=== PATIENT | male | born 1995 | race American Indian/Alaskan Native ===

== ENCOUNTER 2017-02-16 17:42 | Emergency (ER) | payer OTHER ==
[2017-02-16 17:53] VITALS: BP 131/70; PULSE 94; TEMP 99; BMI 25.8
--- NOTE | 2017-02-16 19:09 | PDOC ---
History of Present Illness - History of Present Illness Initial Comments: 02/16/17 20:42 The patient is a 21 year old with no PMHx who presents to the ED with non- radiating low back pain, neck pain, and headache for 2 days. He reports associated light sensitivity, generalized weakness, fever, and chills. Patient states that this pain is worse lying down at night and waking up in the morning. He took Advil with minimal relief. He reports he was chopping wood two days ago before the pain began. He denies cough, congestion, SOB. He denies ear pain, runny nose. He denies numbness, nausea, vomiting, diarrhea, constipation. He denies urinary complaints.He denies recent trauma, recent illness. PAST MEDICAL HISTORY: no significant history PAST SURGICAL HISTORY: no significant history FAMILY HISTORY: no pertinent history SOCIAL HISTORY: Pt lives with family and is employed. MEDICATIONS: reviewed ALLERGIES: As per nursing notes Review of Systems: General: (+) fever, chills, weakness,No weight loss HEENT: No change in vision. No sore throat,. No ear pain CardioVascular: No chest pain or shortness of breath Respiratory: No cough, or wheezing. Gastrointestinal: no nausea, vomiting, diarrhea or constipation, No rectal bleeding Genitourinary: No dysuria, hematuria, or frequency Musculoskeletal: (+) low back pain, neck pain. No joint pain or swelling Neurologic: (+) headache, light sensitivity. No vertigo, dizziness or loss of consciousness Psychiatric: No depression Skin: No rashes or easy bruising Endocrine: No increased thirst or abnormal weight change Allergic: No skin or latex allergy All other systems reviewed and normal BASIC EXAM: GENERAL: The patient is awake, alert, and fully oriented, in no acute distress. HEAD: Normal with no signs of trauma. EYES: Pupils equal, round and reactive to light, extraocular movements intact, sclera anicteric, conjunctiva clear. EXTREMITIES: Normal range of motion, no edema. NEUROLOGICAL: Normal speech, normal gait. PSYCH: Normal mood, normal affect. SKIN: Warm, Dry, normal turgor, no rashes or lesions noted. NECK: No cervical tenderness, no meningeal signs, posterior oropharynx has mild erythema with no exudates, no lymphadenopathy. Bilateral neck muscles are tender on palpation BACK: Paraspinal tenderness and spasms at the mid lumbar area. No tenderness over sciatic notch. Negative straight leg raising. Neurovascular distal intact. <Radha Anderson - Last Filed: 02/16/17 20:42> - General History Source: Patient Exam Limitations: No Limitations - History of Present Illness Initial Comments: 02/16/17 21:08 A portion of this note was documented by scribe services under my direction. I have reviewed the details of the note, within reason, and agree with the documentation. The case summary and management plan written by me. Assessment and plan: This is a 21-year-old male who comes in complaining of headache, upper respiratory tract symptoms and low back pain. Patient symptoms began after chopping and moving a number of heavy logs. Patient said he was doing this out in the sun and afterwards he felt hot but never took his temperature but thought he may have had a fever. She was afebrile here in the emergency room. She is exam was otherwise unremarkable with the exception of some tenderness and spasm of his low back area. Patient was treated with Toradol and Decadron for the low back pain. Patient given prescription for Naprosyn and a muscle relaxant. Patient's blood work was unremarkable for any acute infectious process. Patient discharged and told to follow-up with his primary care doctor. <Tegan Alvarez I - Last Filed: 02/16/17 21:13> - General Chief Complaint: Cold Symptoms Stated Complaint: fever Time Seen by Provider: 02/16/17 19:07 Past History <Radha Anderson A - Last Filed: 02/16/17 20:42> - Past Medical History Other medical history: denies - Psycho/Social/Smoking Cessation Hx Anxiety: No Suicidal Ideation: No Smoking History: Never smoked Hx Alcohol Use: No Drug/Substance Use Hx: No Substance Use Type: None <Tegan Alvarez I - Last Filed: 02/16/17 21:13> - Past Medical History Allergies/Adverse Reactions: Allergies Allergy/AdvReac Type Severity Reaction Status Date / Time Penicillins Allergy Verified 02/16/17 17:44 Home Medications: Ambulatory Orders Cyclobenzaprine HCl [Flexeril 10 mg] 10 mg PO HS #10 tablet 02/16/17 Naproxen [Naprosyn -] 500 mg PO BID #14 tablet 02/16/17 *Physical Exam - Vital Signs Last Vital Signs Temp Pulse Resp BP Pulse Ox 99.0 F 94 H 18 131/70 100 02/16/17 17:43 02/16/17 17:43 02/16/17 17:43 02/16/17 19:58 02/16/17 17:43 <Radha Anderson A - Last Filed: 02/16/17 20:42> - Vital Signs Last Vital Signs Temp Pulse Resp BP Pulse Ox 99.0 F 94 H 18 131/70 100 02/16/17 17:43 02/16/17 17:43 02/16/17 17:43 02/16/17 17:43 02/16/17 17:43 <Tegan Alvarez I - Last Filed: 02/16/17 21:13> ED Treatment Course - LABORATORY CBC & Chemistry Diagram: 02/16/17 19:27 - ADDITIONAL ORDERS Additional order review: 02/16/17 19:27 RBC 5.56 MCV 83.1 MCHC 34.3 RDW 12.0 MPV 9.0 Neutrophils % 71.0 Lymphocytes % 22.0 Monocytes % 7.0 - Medications Given in the ED: ED Medications Discontinued Medications Generic Name Dose Route Start Last Admin Trade Name Manuelq PRN Reason Stop Dose Admin Dexamethasone Sodium Phosphate 10 mg 02/16/17 19:28 02/16/17 19:35 Decadron Injection - IVPUSH 02/16/17 19:29 10 mg ONCE ONE Administration Diazepam 2 mg 02/16/17 19:57 02/16/17 20:01 Valium - PO 02/16/17 19:58 Not Given ONCE ONE Ketorolac Tromethamine 60 mg 02/16/17 19:25 02/16/17 19:36 Toradol Injection - IM 02/16/17 19:26 Not Given ONCE ONE Ketorolac Tromethamine 30 mg 02/16/17 19:28 02/16/17 19:35 Toradol Injection - IVPUSH 02/16/17 19:29 30 mg ONCE ONE Administration <Radha Anderson - Last Filed: 02/16/17 20:42> - LABORATORY CBC & Chemistry Diagram: 02/16/17 19:27 <Tegan Alvarez I - Last Filed: 04/13/17 21:13> *DC/Admit/Observation/Transfer - Attestations Scribe Attestion: 02/16/17 20:42 Documentation prepared by Radha Anderson, acting as medical lab scientist for Tegan Alvarez MD. <Radha Anderson - Last Filed: 02/16/17 20:42> - Discharge Dispostion Admit: No <Tegan Alvarez I - Last Filed: 02/16/17 21:13> Diagnosis at time of Disposition: Low back pain Qualifiers: Chronicity: acute Back pain laterality: bilateral Sciatica presence: without sciatica Qualified Code(s): M54.5 - Low back pain Upper respiratory tract infection Qualifiers: URI type: unspecified viral URI Qualified Code(s): J06.9 - Acute upper respiratory infection, unspecified; B97.89 - Other viral agents as the cause of diseases classified elsewhere - Discharge Dispostion Disposition: HOME Condition at time of disposition: Stable - Patient Instructions Printed Discharge Instructions: DI for Viral Upper Respiratory Infection -- Adult, Low Back Pain, DI for Low Back Pain Additional Instructions: For the pain take Naprosyn 1 tablet twice a day. For back spasm take Flexeril one tablet before bed the Flexeril will make you sleepy so try to limit it to the nighttime hours. Return to the emergency department immediately with ANY new, persistent or worsening symptoms. Continue any medications as previously prescribed by your physician. You should follow up with your primary doctor as soon as possible regarding today's emergency department visit. . Please make sure your doctor reviews the results of your emergency evaluation. Thank you for coming to the Emergency Department today for your care. It was a pleasure to see you today. Please note that your evaluation is INCOMPLETE until you follow-up with your doctor.
[2017-02-16] MEDS ORDERED: DEXAMETHASONE SOD PHOSPHATE 10 MG/1 ML VIAL ONE (19:32)
[2017-02-16] MEDS ORDERED: KETOROLAC TROMETHAMINE 30 MG/1 ML VIAL ONE (19:32)
[2017-02-16] MEDS: KETOROLAC TROMETHAMINE 30 MG/1 ML VIAL IVPUSH ONE (19:35)
[2017-02-16] MEDS: DEXAMETHASONE SOD PHOSPHATE 10 MG/1 ML VIAL IVPUSH ONE (19:35)
[2017-02-16] MEDS: KETOROLAC TROMETHAMINE 60 MG/2 ML VIAL IM ONE (19:36)
[2017-02-16 19:56] LABS: MCH 28.5 pg (25.7-33.7); MCHC 34.3 g/dl (32.0-35.9); MEAN CELL VOLUME 83.1 fl (80-96); PLATELET COUNT 152 K/MM3 (134-434); WHITE BLOOD COUNT 3.6 K/mm3 (4.0-10.0)
[2017-02-16] MEDS: SODIUM CHLORIDE 1,000 ML IV ONE (19:58)
[2017-02-16] MEDS: diazePAM 2 MG TABLET PO ONE (20:01)
== END 2017-02-16 21:23 | disposition home or self-care (01) ==
LOC: FER 17:42
PROC: 3E0337Z Introduction of Electrolytic and Water Balance Substance into Peripheral Vein, Percutaneous Approach (ICD-10-PCS; principal; 2017-02-16)
PROC: 3E0333Z Introduction of Anti-inflammatory into Peripheral Vein, Percutaneous Approach (ICD-10-PCS; 2017-02-16)
DX: M54.2 Cervicalgia (principal); J06.9 Acute upper respiratory infection, unspecified; M54.5 Low back pain
CPT/HCPCS: 36415; 85025; 86140; 99283-25

== ENCOUNTER 2017-11-12 00:28 | Emergency (ER) | payer SELFPAY ==
--- NOTE | 2017-11-12 00:33 | PDOC ---
History of Present Illness - General Stated Complaint: R SHOULDER INJURY Time Seen by Provider: 11/12/17 00:33 History Source: Patient Exam Limitations: No Limitations - History of Present Illness Initial Comments: 11/12/17 02:19 21-year-old male who is right hand dominant presents to the emergency department complaining of right shoulder pain. Pain is described as 4/10 dull nonradiating intermittent discomfort. Patient [place] the mall, the escalator was noticed to be out of service therefore the patient place his hands on the moving descending rails when his right shoulder twisted causing acute pain. Pain is exacerbated on movement and alleviated at rest. Patient denies any neck pain/back pains, extremity numbness or tingling sensation. Timing/Duration: 1-3 hours Past History - Past Medical History Allergies/Adverse Reactions: Allergies Allergy/AdvReac Type Severity Reaction Status Date / Time Penicillins Allergy Verified 02/16/17 17:44 Home Medications: Ambulatory Orders Cyclobenzaprine HCl [Flexeril 10 mg] 10 mg PO HS #10 tablet 02/16/17 Naproxen [Naprosyn -] 500 mg PO BID #14 tablet 02/16/17 - Suicide/Smoking/Psychosocial Hx Smoking History: Never smoked Hx Alcohol Use: No Drug/Substance Use Hx: No Substance Use Type: None Review of Systems - Review of Systems Able to Perform ROS?: Yes Comments:: 11/12/17 03:58 CONSTITUTIONAL: Absent: fever, chills, diaphoresis, generalized weakness, malaise, loss of appetite CARDIOVASCULAR: Absent: chest pain, loss of consciousness, palpitations, irregular heart rate, peripheral edema RESPIRATORY: Absent: cough, shortness of breath, dyspnea with exertion, orthopnea, wheezing, stridor, hemoptysis GASTROINTESTINAL: Absent: abdominal pain, abdominal distension, nausea, vomiting, diarrhea, constipation, melena, hematochezia GENITOURINARY: Absent: dysuria, frequency, urgency, hesitancy, hematuria, flank pain, genital pain MUSCULOSKELETAL: +right shoulder pain Absent: myalgia, arthralgia, joint swelling SKIN: Absent: rash, itching, pallor Is the patient limited [place]ian proficient: No *Physical Exam - Physical Exam Comments: 11/12/17 03:58 GENERAL: Well developed, well nourished. Awake and alert. No acute distress. MUSCULOSKELETAL Normal range of motion at all joints. No bony deformities or tenderness. No CVA tenderness. EXTREMITIES: RIght shoulder decreased R.O.M./pain Neg drop arm No cyanosis. No clubbing. No edema. No calf tenderness. SKIN: Warm and dry. Normal capillary refill. No rashes. No jaundice. ED Treatment Course - RADIOLOGY Radiograph Interpretation: 11/12/17 01:31 Xray right shoulder 3v neg fx/dislocations Medical Decision Making - Medical Decision Making 11/12/17 03:59 21-year-old who is right hand dominant presents complaining of right shoulder pain. Patient insists that his right shoulder is dislocated and insists that I reduce it without any images. I explained to the patient that I will not be able to reduce his shoulder for I do not know if this dislocated. On patient's exam, I do not believe and did not believe that it was a right shoulder dislocation. Patient kept insisting that it is dislocated even though he's never had a dislocation of the right shoulder before. Patient states due to financial reasons, he is refusing images. I explained to the patient that I am unable to properly treat his right shoulder pain in the distal dislocated. I explained that if it is dislocated or fractured and I manipulated without images , he can have further injuries and will return believing that I had fractured his right shoulder. Patient ultimately agree with having images to his right shoulder. I read the images which does not show any fracture or dislocation. Patient will be discharged with an arm sling. Patient will follow also. *DC/Admit/Observation/Transfer Diagnosis at time of Disposition: Sprain of right shoulder Qualifiers: Encounter type: initial encounter Shoulder sprain type: other part of shoulder region Qualified Code(s): S43.491A - Other sprain of right shoulder joint, initial encounter - Discharge Dispostion Disposition: HOME Condition at time of disposition: Stable Admit: No - Referrals Referrals: Jerrica Aguirre MD [Primary Care Provider] - Adama Hector MD [Staff Physician] - - Patient Instructions Printed Discharge Instructions: DI for Shoulder Sprain Additional Instructions: Ice; 20 mins on alternating with 20 mins off for 48 hours while awake. Rest Elevate Follow up with your orthopedic surgeon or the one listed on the discharge form. Return to the ER for severe/persistent/worsening symptoms, extremity numbness/ tingling sensation. - Post Discharge Activity
[2017-11-12 01:09] VITALS: BP 133/79; PULSE 80; TEMP 98; BMI 27.9
== END 2017-11-12 02:17 | disposition home or self-care (01) ==
LOC: JER 00:28
DX: S43.491A Other sprain of right shoulder joint, initial encounter (principal); X50.1XXA Overexertion from prolonged static or awkward postures, initial encounter; Y93.89 Activity, other specified; Y92.59 Other trade areas as the place of occurrence of the external cause; Y99.8 Other external cause status
CPT/HCPCS: 73030-TC-RT; 99281-25

== ENCOUNTER 2018-09-03 03:38 | Emergency (ER) | payer OTHER ==
[2018-09-03 04:38] VITALS: BP 113/85; PULSE 65; TEMP 98.1; BMI 28.4
[2018-09-03] MEDS ORDERED: ALBUTEROL SO4 2.5/IPRATROPIUM 0.5 INH SOL 3 ML VIAL.NEB. NEB ONE ×2 (04:57→05:08)
--- NOTE | 2018-09-03 04:57 | PDOC ---
Attending Attestation - Resident Resident Name: Josefina Haynes - ED Attending Attestation I have performed the following: I have examined & evaluated the patient, The case was reviewed & discussed with the resident, I agree w/resident's findings & plan - HPI HPI: 09/03/18 04:57 Pt comes with cough and SOB - Physicial Exam PE: 09/03/18 04:58 Agree with exam. 09/03/18 06:51 Pt has bubble appearance/atypical OM of the right ear. 09/03/18 06:51 No wheezing/lungs clear. - Medical Decision Making 09/03/18 04:58 Pt will have CXR; duoneb. 09/03/18 06:50 Pt will be treated with zpak for an atypical URI and OM.
--- NOTE | 2018-09-03 05:43 | PDOC ---
History of Present Illness - General Chief Complaint: Cold Symptoms Stated Complaint: DIFFICULTY BREATHING Time Seen by Provider: 09/03/18 04:36 - History of Present Illness Initial Comments: 09/03/18 06:11 22 year old with no past medical history presents with 3 days of productive cough of yellow phlegm. The patient denies fevers, headaches, rhinorrhea. Notes that he feels shortness of breath that worsens at night. The patient has sick contacts with his two nephews at home. He denies any N/V/D/C. He denies any recent travel, long flights or car rides. He has no other complaints at bedside. Past History - Past Medical History Allergies/Adverse Reactions: Allergies Allergy/AdvReac Type Severity Reaction Status Date / Time Penicillins Allergy Unknown Verified 09/03/18 05:07 Home Medications: Ambulatory Orders Azithromycin [Zithromax -] 250 mg PO DAILY #4 tab 09/03/18 Ibuprofen [Motrin -] 800 mg PO PRN 09/03/18 COPD: No - Suicide/Smoking/Psychosocial Hx Smoking History: Never smoked Have you smoked in the past 12 months: No Information on smoking cessation initiated: No Hx Alcohol Use: No Drug/Substance Use Hx: No Substance Use Type: None *Physical Exam - Vital Signs Last Vital Signs Temp Pulse Resp BP Pulse Ox 98.1 F 65 19 113/85 99 09/03/18 03:40 09/03/18 03:40 09/03/18 03:40 09/03/18 03:40 09/03/18 03:40 - Physical Exam Comments: 09/03/18 06:14 + no wheezes CTAB, RRR + no erythema of the throat ears; non erythematous nonbulging normal exam ED Treatment Course - RADIOLOGY Radiology Studies Ordered: Category Date Time Status CXRPORT [CHEST X-RAY PORTABLE*] [RAD] Stat Radiology 09/03/18 04:57 Ordered - Medications Given in the ED: ED Medications Discontinued Medications Generic Name Dose Route Start Last Admin Trade Name Freq PRN Reason Stop Dose Admin Albuterol/Ipratropium 1 amp 09/03/18 04:57 09/03/18 05:10 Duoneb - NEB 09/03/18 04:58 1 amp ONCE ONE Administration Medical Decision Making - Medical Decision Making 09/03/18 06:13 22 year old with no past medical history presents with 3 days of productive cough of yellow phlegm. The patient denies fevers, headaches, rhinorrhea. Notes that he feels shortness of breath that worsens at night. The patient has sick contacts with his two nephews at home. He denies any N/V/D/C. He denies any recent travel, long flights or car rides. He has no other complaints at bedside. DDX including but not limited to: viral syndrome vs bronchitis vs PNA W/U: - cxr [place]: - duoneb ED Course: *DC/Admit/Observation/Transfer Diagnosis at time of Disposition: URI (upper respiratory infection) - Discharge Dispostion Disposition: HOME Condition at time of disposition: Improved Decision to Admit order: No - Prescriptions Prescriptions: Azithromycin [Zithromax -] 250 mg PO DAILY #4 tab - Referrals Referrals: Jerrica Aguirre MD [Primary Care Provider] - - Patient Instructions Additional Instructions: You were seen in the ED for complaints of cough and difficulty breathing. In the ED you were evaluated and treated with nebulizer. You showed improvement with treatment. There does not appear to be an acute need for immediate hospitalization. You are advised to follow up with your Primary Care Physician within 1 week. You were given a prescription for antibiotics to treat an atypical ear infection. Please take medications as directed. Return to the ED immediately if you experience worsening symptoms such as worsening cough, fever, headaches, chest pain, shortness of breath or if there is any blood in the sputum. - Post Discharge Activity Forms/Work/School Notes: Back to Work
[2018-09-03] MEDS ORDERED: AZITHROMYCIN 250 MG TABLET PO ONE (06:20)
[2018-09-03] MEDS ORDERED: ACETAMINOPHEN 325 MG TABLET (FP) PO ONE (06:24)
[2018-09-03] MEDS ORDERED: AZITHROMYCIN 250 MG TABLET ONE (06:27)
[2018-09-03] MEDS ORDERED: ACETAMINOPHEN 325 MG TABLET (FP) ONE (06:27)
== END 2018-09-03 06:36 | disposition home or self-care (01) ==
LOC: JER 03:38
PROC: 3E0F7GC Introduction of Other Therapeutic Substance into Respiratory Tract, Via Natural or Artificial Opening (ICD-10-PCS; principal; 2018-09-03)
DX: J06.9 Acute upper respiratory infection, unspecified (principal)
CPT/HCPCS: 94640; 99281-25

== ENCOUNTER 2021-08-07 07:54 | Emergency (ER) | payer OTHER ==
[2021-08-07 08:12] VITALS: BP 131/81; PULSE 62; TEMP 98; BMI 34.4
[2021-08-07] MEDS ORDERED: DIPHTH,PERTUSS(ACELL),TET 0.5 ML DISP.SYRIN IM ONE ×2 (08:38→08:58)
== END 2021-08-07 09:13 | disposition home or self-care (01) ==
LOC: JER 07:54
PROC: 3E0234Z Introduction of Serum, Toxoid and Vaccine into Muscle, Percutaneous Approach (ICD-10-PCS; principal; 2021-08-07)
DX: T65.91XA Toxic effect of unspecified substance, accidental (unintentional), initial encounter (principal)
CPT/HCPCS: 90715; 99284-25

== ENCOUNTER 2021-12-30 22:35 | Emergency (ER) | payer OTHER ==
[2021-12-30 22:43] VITALS: BMI 34.4
[2021-12-30] MEDS ORDERED: ONDANSETRON 4 MG/2 ML VIAL IVPUSH ONE (23:42)
[2021-12-30] MEDS ORDERED: LACTATED RINGERS SOLUTION 1000 ML INFUS.BAG IV ONE (23:42)
[2021-12-30] MEDS ORDERED: ACETAMINOPHEN 1000 MG/100 ML BAG IVPB ONE (23:43)
[2021-12-30] MEDS ORDERED: ACETAMINOPHEN INJECTION 100 ML IVPB ONE (23:49)
[2021-12-30] MEDS ORDERED: ONDANSETRON 4 MG/2 ML VIAL ONE (23:50)
[2021-12-31 00:29] LABS: HEMATOCRIT 48.2 % (35.4-49); HEMOGLOBIN 16.9 GM/dL (11.7-16.9); MEAN CELL VOLUME 82.8 fl (80-96); MEAN PLT VOLUME 8.6 fl (7.5-11.1); PLATELET COUNT 223 10^3/uL (134-434); RBC 5.82 M/mm3 (4.00-5.60); RDW 12.9 % (11.9-15.9); WHITE BLOOD COUNT 10.8 K/mm3 (4.0-10.0)
[2021-12-31 00:45] LABS: INR 1.11 (0.83-1.09); PROTHROMBIN TIME (PATIENT) 12.8 SEC (9.7-13.0)
[2021-12-31 00:50] LABS: CALCIUM 9.4 mg/dL (8.5-10.1)
[2021-12-31 00:51] LABS: ALBUMIN 4.3 g/dl (3.4-5.0); BLOOD UREA NITROGEN 19.9 mg/dL (7-18)
[2021-12-31 00:54] LABS: CREATININE 1.4 mg/dL (0.55-1.3)
[2021-12-31 00:55] LABS: TOT PROT 7.9 g/dl (6.4-8.2)
[2021-12-31 00:58] LABS: BILIRUBIN,TOTAL 0.8 mg/dL (0.2-1)
[2021-12-31 03:12] VITALS: BP 109/74; PULSE 104; TEMP 99.8
[2021-12-31 03:13] LABS: ANISOCYTOSIS 1+; MACROCYTOSIS 1+
== END 2021-12-31 03:47 | disposition home or self-care (01) ==
LOC: JER 22:35
PROC: 3E033GC Introduction of Other Therapeutic Substance into Peripheral Vein, Percutaneous Approach (ICD-10-PCS; principal; 2021-12-30)
DX: K52.9 Noninfective gastroenteritis and colitis, unspecified (principal)
CPT/HCPCS: 36415; 80053; 83605; 85025; 85610; 86850; 86900; 86901; 99284-25

== ENCOUNTER 2021-12-31 04:01 | Emergency (ER) | payer OTHER ==
[2021-12-31 04:07] VITALS: BMI 34.4
[2021-12-31] MEDS ORDERED: ONDANSETRON 4 MG/2 ML VIAL IVPUSH ONE (04:37)
[2021-12-31] MEDS ORDERED: LACTATED RINGERS SOLUTION 1000 ML INFUS.BAG IV ONE (04:38)
[2021-12-31] MEDS ORDERED: morphine CARPU-JECT 2 MG/1 ML DISP.SYRIN IVPUSH ONE (04:39)
[2021-12-31] MEDS ORDERED: ONDANSETRON 4 MG/2 ML VIAL ONE (04:40)
[2021-12-31] MEDS ORDERED: morphine SULFATE 4 MG/ML VIAL ONE (04:40)
[2021-12-31 06:53] VITALS: BP 130/76; PULSE 88; TEMP 98
[2021-12-31 07:59] LABS: URINE APPEARANCE CLEAR; URINE BILIRUBIN NEGATIVE (NEGATIVE); URINE COLOR YELLOW; URINE GLUCOSE (UA) NEGATIVE (NEGATIVE); URINE KETONE NEGATIVE (NEGATIVE)
[2021-12-31 08:00] LABS: PH,URINE 5.5 (5.0-8.0); URINE LEUK ESTERASE NEGATIVE (NEGATIVE); URINE NITRITE NEGATIVE (NEGATIVE); URINE PROTEIN NEGATIVE (NEGATIVE); URINE UROBILINOGEN 0.2 mg/dL (0.2-1.0)
== END 2021-12-31 06:53 | disposition home or self-care (01) ==
LOC: JER 04:01
PROC: 3E033NZ Introduction of Analgesics, Hypnotics, Sedatives into Peripheral Vein, Percutaneous Approach (ICD-10-PCS; principal; 2021-12-31)
PROC: 3E033GC Introduction of Other Therapeutic Substance into Peripheral Vein, Percutaneous Approach (ICD-10-PCS; 2021-12-31)
DX: K52.9 Noninfective gastroenteritis and colitis, unspecified (principal)
CPT/HCPCS: 74177-TC; 81003; 87086; 99285-25